=== PATIENT | female | born 1990 | race Two or more races ===

== ENCOUNTER 2024-01-25 10:40 | Inpatient (IN) | payer OTHER ==
[~2024-01-25] VITALS: Ht 160 cm; Wt 67.1 kg
[2024-01-25] MEDS ORDERED: RINGERS SOLUTION,LACTATED 1,000 ML IV SCH (12:15)
[2024-01-25] MEDS ORDERED: BETAMETHASONE ACETATE,SOD PHOS 30 MG/5 ML ML IM ONE (12:15)
[2024-01-25] MEDS ORDERED: MAGNESIUM SULFATE IN WATER 100 ML IV ONE (12:15)
[2024-01-25] MEDS ORDERED: MAGNESIUM SULFATE IN WATER 500 ML IV SCH (12:15)
[2024-01-25] MEDS ORDERED: PRENATAL TABLE1 EAC1 PO (12:22)
[2024-01-25] MEDS ORDERED: SYNTHROID125 MCG PO (12:22)
[2024-01-25] MEDS ORDERED: WELLBUTRIN SR150 MG PO (12:23)
[2024-01-25] MEDS ORDERED: BETAMETHASONE ACETATE,SOD PHOS 30 MG/5 ML ML ONE (12:29)
[2024-01-25 13:16] LABS: HEMATOCRIT 34.4 % (36.0-45.00); MEAN CORPUSCULAR HGB CONC 34.9 g/dl (32.0-36.0); PLATELET COUNT 197 K/uL (150-450); RED BLOOD COUNT 3.87 M/uL (4.00-6.00); RED CELL DISTRIBUTION WIDTH 13.6 % (11.5-14.5)
[2024-01-25 13:20] LABS: URINE APPEARANCE Clear; URINE BILIRRUBIN Negative (NEGATIVE); URINE BLOOD Negative; URINE COLOR Yellow; URINE GLUCOSE Negative (NEGATIVE); URINE LEUKOCYTE Negative; URINE NITRATE Negative; URINE PROTEIN Negative (NEGATIVE); URINE UROBILINOGEN 0.2 E.U./dl
[2024-01-25 13:24] LABS: URINE BACTERIA 573.2 uL (0.0-1933); URINE EPITHELIAL CELLS 3.4 uL (0.0-38.8)
[2024-01-25 13:37] LABS: URINE RBC 1.5 uL (0.0-20.8)
[2024-01-25 13:48] LABS: ALBUMIN 2.7 gm/dL (3.4-5.0); BILIRUBIN TOTAL 0.38 mg/dL (0.3-1.2); CALCIUM 8.9 mg/dL (8.5-10.1); CREATININE SERUM 0.35 mg/dL (0.55-1.02); GFR 213.15; GLOBULINA 3.1 G/DL (2.4-3.5); POTASSIUM 4.15 mEq/L (3.5-5.1); TOTAL PROTEIN 5.8 gm/dL (6.4-8.2)
[2024-01-25] MEDS ORDERED: ACETAMINOPHEN 500 MG GEL..CAP PO PRN (21:30)
[2024-01-26] MEDS ORDERED: NIFEDIPINE 60 MG TAB.SA.OSM PO SCH (09:00)
[2024-01-26] MEDS ORDERED: BETAMETHASONE ACETATE,SOD PHOS 30 MG/5 ML ML IM NR (12:15)
[2024-01-26] MEDS ORDERED: FAMOTIDINE/PF 20 MG/2 ML VIAL IV PUSH NR (14:15)
[2024-01-26] MEDS ORDERED: FAMOTIDINE/PF 20 MG/2 ML VIAL IV PUSH SCH (21:00)
== END 2024-01-27 13:04 | disposition home or self-care (01) | DRG 833 ==
LOC: NST 10:40 → LDR 11:59 → OB/GYN 01-26 10:41
PROVIDERS: ADMIT Obstetrics & Gynecology; ATTEND Obstetrics & Gynecology
PROC: 4A1HXCZ Monitoring of Products of Conception, Cardiac Rate, External Approach (ICD-10-PCS; principal; 2024-01-25)
DX: O60.03 Preterm labor without delivery, third trimester (principal); Z3A.34 34 weeks gestation of pregnancy; Z20.822 Contact with and (suspected) exposure to COVID-19

== ENCOUNTER 2024-02-01 09:02 | Outpatient (CLI) | payer OTHER ==
[~2024-02-01 09:02] MED LIST: PRENATAL TABLE1 EAC1 PO; SYNTHROID125 MCG PO; WELLBUTRIN SR150 MG PO
== END 2024-02-01 09:55 | disposition home or self-care (01) ==
LOC: NST 09:02
PROVIDERS: ATTEND Obstetrics & Gynecology
DX: Z34.83 Encounter for supervision of other normal pregnancy, third trimester (principal)

== ENCOUNTER 2024-02-22 13:30 | Inpatient (IN) | payer OTHER ==
[~2024-02-22] VITALS: Ht 160 cm; Wt 2.7 kg
[2024-02-29] MEDS ORDERED: RINGERS SOLUTION,LACTATED 1,000 ML IV SCH (12:00)
[2024-02-29 12:05] LABS: HEMATOCRIT 35.1 % (36.0-45.00); HEMOGLOBIN 12.1 g/dL (12.0-15.00); MEAN CELL VOLUME 89.8 fL (80.00-100.00); MEAN CORPUSCULAR HEMOGLOBIN 30.9 pg (27.00-32.0); MEAN CORPUSCULAR HGB CONC 34.4 g/dl (32.0-36.0); PLATELET COUNT 181 K/uL (150-450); RED BLOOD COUNT 3.91 M/uL (4.00-6.00)
[2024-02-29 12:45] LABS: INR 0.95; PARTIAL THROMBOPLASTIN TIME 29.1 SECONDS (22.0-34.0); PROTHROMBIN TIME 10.4 SECONDS (9.0-11.5)
[2024-02-29 13:30] LABS: ALBUMIN 2.8 gm/dL (3.4-5.0); BILIRUBIN TOTAL 0.33 mg/dL (0.3-1.2); CALCIUM 9.4 mg/dL (8.5-10.1); CREATININE SERUM 0.5 mg/dL (0.55-1.02); GFR 141.23; GLOBULINA 3.2 G/DL (2.4-3.5); POTASSIUM 4.3 mEq/L (3.5-5.1)
[2024-02-29] MEDS ORDERED: MISOPROSTOL 25 MCG TABLET ONE (16:09)
[2024-02-29] MEDS ORDERED: MISOPROSTOL 25 MCG TABLET VAG ONE (16:30)
[2024-02-29] MEDS ORDERED: ACETAMINOPHEN 500 MG GEL..CAP PO PRN (21:15)
[2024-03-01] MEDS ORDERED: PROMETHAZINE HCL 25 MG/ML AMPUL IV ONE ×2 (03:40→13:00)
[2024-03-01] MEDS ORDERED: MEPERIDINE HCL/PF 50 MG/ML VIAL IV ONE ×2 (03:40→13:00)
[2024-03-01] MEDS ORDERED: PROMETHAZINE HCL 25 MG/ML AMPUL ONE (03:46)
[2024-03-01] MEDS ORDERED: OXYTOCIN 20 UNITS/500ML RL PIGGYBAG IV ONE (07:12)
[2024-03-01] MEDS ORDERED: OXYTOCIN 500 ML IV ONE (07:30)
[2024-03-01] MEDS ORDERED: LEVOTHYROXINE SODIUM 125 MCG TABLET PO SCH (09:00)
[2024-03-01] MEDS ORDERED: CITRIC ACID/SODIUM CITRATE 30 ML BLIST.PACK PO SCH (14:00)
[2024-03-01] MEDS ORDERED: CEFAZOLIN SODIUM 1,000 MG VIAL IV NR (14:00)
[2024-03-01] MEDS ORDERED: CHLORHEXIDINE GLUCONATE 120 ML BOTTLE TOP ONE (14:11)
[2024-03-01] MEDS ORDERED: ERYTHROMYCIN BASE 1 GM TUBE OP ONE ×2 (14:11→16:18)
[2024-03-01] MEDS ORDERED: OXYTOCIN 10 UNITS/ML VIAL ONE ×2 (14:11→16:18)
[2024-03-02] MEDS ORDERED: MORPHINE SULFATE 4 MG/ML VIAL IV SCH
[2024-03-02] MEDS ORDERED: KETOROLAC TROMETHAMINE 30 MG VIAL IV SCH (02:00)
[2024-03-02] MEDS ORDERED: OxyCODONE HCL/APAP UD (PERCOCET) PO PRN (09:45)
[2024-03-02] MEDS ORDERED: KETOROLAC TROMETHAMINE 10 MG TABLET PO SCH (12:00)
[2024-03-02] MEDS ORDERED: GABAPENTIN 300 MG CAPSULE PO SCH (13:00)
[2024-03-02] MEDS ORDERED: DOCUSATE CALCIUM 240 MG CAPSULE PO SCH (21:00)
== END 2024-03-03 15:10 | disposition home or self-care (01) | DRG 788 ==
LOC: LDR 02-29 10:16 → OB/GYN 03-01 18:07
PROVIDERS: ADMIT Obstetrics & Gynecology Maternal & Fetal Medicine; ATTEND Obstetrics & Gynecology Maternal & Fetal Medicine
PROC: 10D00Z1 Extraction of Products of Conception, Low, Open Approach (ICD-10-PCS; principal; 2024-02-29)
PROC: 4A1HXCZ Monitoring of Products of Conception, Cardiac Rate, External Approach (ICD-10-PCS; 2024-02-29)
DX: O82 Encounter for cesarean delivery without indication (principal); Z3A.38 38 weeks gestation of pregnancy; Z37.0 Single live birth; Z20.822 Contact with and (suspected) exposure to COVID-19

== ENCOUNTER → 2024-02-24 | Outpatient (CLI) | payer OTHER | END | disposition home or self-care (01) | LOC: NST 13:18 | PROVIDERS: ATTEND Obstetrics & Gynecology Maternal & Fetal Medicine | DX: Z34.83 Encounter for supervision of other normal pregnancy, third trimester (principal) ==